=== PATIENT | male | born 1960 | race Caucasian/White ===

== ENCOUNTER 2019-11-01 09:45 | Emergency (ER) | payer MEDICARE, MEDICAID ==
[~2019-11-01] VITALS: Ht 172.7 cm; Wt 64.0 kg
[~2019-11-01 09:45] MED LIST: CELE-54 PO; COMIN IH; KEP500T PO; METF-950 PO; MULT-1074 PO; NORCO10T PO; OMEP40CA13 PO
[2019-11-01 09:50] VITALS: BP 159/82
[2019-11-01] MEDS ORDERED: traMADol 50MG tablet PO ONE (10:25)
[2019-11-01] MEDS ORDERED: TRAM50TA2 PO (10:31)
== END 2019-11-01 10:55 | disposition home or self-care (01) ==
LOC: ER 09:45
DX: G89.29 Other chronic pain (principal); R20.2 Paresthesia of skin; J44.9 Chronic obstructive pulmonary disease, unspecified; K21.9 Gastro-esophageal reflux disease without esophagitis; E11.9 Type 2 diabetes mellitus without complications; M19.90 Unspecified osteoarthritis, unspecified site; F12.90 Cannabis use, unspecified, uncomplicated; Z86.69 Personal history of other diseases of the nervous system and sense organs; Z98.890 Other specified postprocedural states; Z72.89 Other problems related to lifestyle; Z88.1 Allergy status to other antibiotic agents; Z88.2 Allergy status to sulfonamides; Z88.8 Allergy status to other drugs, medicaments and biological substances; Z79.899 Other long term (current) drug therapy
CPT/HCPCS: 99284

== ENCOUNTER 2021-07-20 09:17 | Outpatient (CLI) | payer MEDICARE, MEDICAID ==
[~2021-07-20 09:17] MED LIST changes: +METF-1203 PO; -METF-950 PO; -OMEP40CA13 PO; +OMEP40CA21 PO
== END 2021-07-20 23:59 | disposition home or self-care (01) ==
LOC: RAD 09:17
PROVIDERS: ATTEND Psychiatry & Neurology Neurology
DX: R94.01 Abnormal electroencephalogram [EEG] (principal); G40.909 Epilepsy, unspecified, not intractable, without status epilepticus
CPT/HCPCS: 95816

== ENCOUNTER 2022-07-19 15:06 | Emergency (ER) | payer MEDICARE, MEDICAID ==
[~2022-07-19] VITALS: Ht 171.4 cm; Wt 61.4 kg
[2022-07-19 15:19] VITALS: BP 125/71
== END 2022-07-19 20:30 | disposition left against medical advice (07) ==
LOC: ER 15:06
DX: R56.9 Unspecified convulsions (principal); Z53.21 Procedure and treatment not carried out due to patient leaving prior to being seen by health care provider